=== PATIENT | male | born 1975 | race Two or more races ===

== ENCOUNTER 2016-10-24 16:31 | Emergency (ER) | payer OTHER ==
[~2016-10-24] VITALS: Ht 182.9 cm; Wt 83.9 kg
--- NOTE | 2016-10-24 16:32 | NUR ---
PRESENTS SELF TO ED DUE TO CHEST TIGHNESS AND LIGHTHEADED X 6 DAYS. PATIENT IS AAO3. APPEARS IN NO APPARENT DISTRESS. RESPIRATION EVEN AND UNLABORED. PATIENT DENIES PAIN OR DISCOMFORT. SKIN IS WARM TO TOUCH AND NON DIAPHORETIC. PATIENT IS AFEBRILE. VSS. WILL CONT TO MONITOR
[2016-10-24 17:23] LABS: BASOPHILS % (AUTO) 0.4 % (0.0-2.0); EOSINOPHILS # (AUTO) 0.1 /CMM (0.0-0.7); EOSINOPHILS % (AUTO) 0.8 % (0.0-6.0); HEMATOCRIT 44 % (39-51); HEMOGLOBIN 14.1 g/dL (13.5-17.5); LYMPHOCYTES # (AUTO) 1.2 /CMM (0.8-4.8); LYMPHOCYTES % (AUTO) 15.8 % (20.0-44.0); MEAN CORPUSCULAR HEMOGLOBIN 28 PG (26.0-33.0); MEAN CORPUSCULAR HGB CONC 32 g/dl (31.0-36.0); MEAN CORPUSCULAR VOLUME 87 fL (80-96); MONOCYTES # (AUTO) 0.5 /CMM (0.1-1.30); MONOCYTES % (AUTO) 6.9 % (2.0-12.0); NEUTROPHILS # (AUTO) 5.8 /CMM (1.8-8.9); NEUTROPHILS % (AUTO) 76.1 % (43.0-81.0); PLATELET COUNT (AUTO) 205 /CMM (150-450); RDW COEFFICIENT OF VARIATION 13.3 (11.5-15.0); RED BLOOD CELL COUNT(AUTO) 5.05 MIL/uL (4.5-6.0); WHITE BLOOD COUNT (AUTO) 7.6 K/uL (4.3-11.0)
[2016-10-24 17:42] LABS: INR 1.06 (0.87-1.13)
[2016-10-24 17:45] LABS: CALCIUM, SERUM 8.7 mg/dL (8.5-10.1); CARBON DIOXIDE 33 mmol/L (21-32); CHLORIDE 105 mmol/L (98-107); GFR 83 mL/min (>60); GLUCOSE 102 mg/dL (74-106); POTASSIUM 3.7 mmol/L (3.5-5.1); SODIUM SERUM 141 mmol/L (136-145); TROPONIN I < 0.017 ng/mL (0.00-0.056); UREA NITROGEN, BLOOD 16 mg/dL (7-18)
[2016-10-24] MEDS ORDERED: MECLIZINE HCL 12.5 MG TABLET PO ONE (18:00)
[2016-10-24] MEDS ORDERED: MECLIZINE HCL 25 MG TABLET ONE (18:08)
--- NOTE | 2016-10-24 19:46 | NUR ---
IV removed. Catheter intact and site benign. Pressure and 4x4 applied to site. No bleeding noted. Patient discharged to home in stable condition. Written and verbal after care instructions given. Patient verbalizes understanding of instruction. Patient is ambulatory with steady gait, no further complaints.
[2016-10-24 19:50] VITALS: BP 129/73
== END 2016-10-24 19:51 | disposition home or self-care (01) ==
LOC: ER 16:34
DX: R42 Dizziness and giddiness (principal); J20.9 Acute bronchitis, unspecified; R79.1 Abnormal coagulation profile; I10 Essential (primary) hypertension; Z88.0 Allergy status to penicillin
CPT/HCPCS: 36415; 70450; 71010; 80048; 84484; 85025; 85730; 93005; 99285; A4606; J8597; Z7610

== ENCOUNTER 2017-03-31 07:44 | Emergency (ER) | payer OTHER ==
[~2017-03-31] VITALS: Ht 182.9 cm; Wt 70.3 kg
[2017-03-31 07:56] VITALS: BP 104/68
[2017-03-31] MEDS ORDERED: MECLIZINE HCL 25 MG TABLET ONE (08:17)
[2017-03-31 08:28] LABS: BASOPHILS % (AUTO) 0.4 % (0.0-2.0); EOSINOPHILS # (AUTO) 0.1 /CMM (0.0-0.7); EOSINOPHILS % (AUTO) 0.9 % (0.0-6.0); HEMATOCRIT 42 % (39-51); HEMOGLOBIN 13.8 g/dL (13.5-17.5); LYMPHOCYTES % (AUTO) 29.9 % (20.0-44.0); MEAN CORPUSCULAR HEMOGLOBIN 29 PG (26.0-33.0); MEAN CORPUSCULAR HGB CONC 33 g/dl (31.0-36.0); MEAN CORPUSCULAR VOLUME 88 fL (80-96); MONOCYTES # (AUTO) 0.5 /CMM (0.1-1.30); MONOCYTES % (AUTO) 7.4 % (2.0-12.0); NEUTROPHILS # (AUTO) 4.2 /CMM (1.8-8.9); NEUTROPHILS % (AUTO) 61.4 % (43.0-81.0); PLATELET COUNT (AUTO) 233 /CMM (150-450); RDW COEFFICIENT OF VARIATION 13.6 (11.5-15.0); RED BLOOD CELL COUNT(AUTO) 4.71 MIL/uL (4.5-6.0); WHITE BLOOD COUNT (AUTO) 6.8 K/uL (4.3-11.0)
[2017-03-31] MEDS ORDERED: MECLIZINE HCL 25 MG TABLET PO ONE (08:30)
[2017-03-31 08:37] LABS: CREATININE 0.9 mg/dL (0.6-1.3)
[2017-03-31 08:44] LABS: ALBUMIN 4.5 g/dL (3.4-5.0); BILIRUBIN,DIRECT 0.2 mg/dL (0.0-0.2); BILIRUBIN,TOTAL 0.9 mg/dL (0.2-1.0); TOTAL PROTEIN, SERUM 7.3 g/dL (6.4-8.2)
== END 2017-03-31 09:04 | disposition home or self-care (01) ==
LOC: ER 07:46
DX: R42 Dizziness and giddiness (principal); Z88.0 Allergy status to penicillin
CPT/HCPCS: 36415; 80048; 80076; 85025; 99284; A4606; J8597; Z7610

== ENCOUNTER 2017-08-07 22:37 | Emergency (ER) | payer OTHER ==
[~2017-08-07] VITALS: Ht 182.9 cm; Wt 72.6 kg
[2017-08-07 22:57] VITALS: BP 112/68
[2017-08-07 23:35] LABS: BASOPHILS # (AUTO) 0.1 /CMM (0.0-0.2); EOSINOPHILS # (AUTO) 0.1 /CMM (0.0-0.7); EOSINOPHILS % (AUTO) 1.5 % (0.0-6.0); HEMATOCRIT 40 % (39-51); HEMOGLOBIN 13.4 g/dL (13.5-17.5); LYMPHOCYTES # (AUTO) 2.3 /CMM (0.8-4.8); LYMPHOCYTES % (AUTO) 32.8 % (20.0-44.0); MEAN CORPUSCULAR HEMOGLOBIN 29 PG (26.0-33.0); MEAN CORPUSCULAR HGB CONC 33 g/dl (31.0-36.0); MEAN CORPUSCULAR VOLUME 87 fL (80-96); MONOCYTES # (AUTO) 0.6 /CMM (0.1-1.30); MONOCYTES % (AUTO) 7.9 % (2.0-12.0); NEUTROPHILS % (AUTO) 56.8 % (43.0-81.0); PLATELET COUNT (AUTO) 193 /CMM (150-450); RDW COEFFICIENT OF VARIATION 13.8 (11.5-15.0); RED BLOOD CELL COUNT(AUTO) 4.61 MIL/uL (4.5-6.0); WHITE BLOOD COUNT (AUTO) 7.1 K/uL (4.3-11.0)
[2017-08-07 23:43] LABS: CALCIUM, SERUM 8.9 mg/dL (8.5-10.1); POTASSIUM 4.5 mmol/L (3.5-5.1)
== END 2017-08-08 02:22 | disposition home or self-care (01) ==
LOC: ER 22:45
DX: G62.9 Polyneuropathy, unspecified (principal); Z88.0 Allergy status to penicillin; Z60.2 Problems related to living alone
CPT/HCPCS: 36415; 80048; 85025; 99284; A4606; Z7610